=== PATIENT | male | born 1995 | race African-American/Black ===

== ENCOUNTER 2025-01-18 23:06 | Emergency (ER) | payer BC, SELFPAY ==
[2025-01-18 23:07] VITALS: BMI 21.2
[2025-01-19 00:58] VITALS: BP 118/70; PULSE 155; RESP 19; TEMP 38.3; O2SAT 99
--- NOTE | 2025-01-19 00:58 | XR_ITS ---
EXAMINATION: XR chest 1V ORDERING PROVIDER: Saud Gutierres PA-C HISTORY: right rib tenderness, r/o pthx TECHNIQUE: PA and Lateral radiographs of the chest. COMPARISON: 07/07/2009, chest radiographs FINDINGS: Lungs: Clear. Pleura: No pneumothorax or pleural effusion. Cardiomediastinal Silhouette: Normal. Soft Tissues/Bones: Normal. IMPRESSION: No acute pulmonary findings. Teleradiology report provided at 4:40 AM 01/19/2025.
--- NOTE | 2025-01-19 00:59 | PD.EDRME ---
Rapid Medical Screening Exam RME Arrival date/time: 01/18/25 23:06 29 yo m present to Ed for c/o of right rib/chest pain s/p injury while playing basketball I have greeted and performed a focused initial assessment of this patient. A comprehensive ED assessment and evaluation of the patient, analysis of all test results, and completion of the medical decision making process will be conducted by additional ED providers. Chief Complaint: Fall Time Seen by Provider: 01/19/25 00:48
[2025-01-19 01:22] VITALS: PULSE 75
[2025-01-19] MEDS: ACETAMINOPHEN 325 MG TABLET 650 MG PO (01:25)
--- NOTE | 2025-01-19 01:34 | XR_ITS ---
Examination: Bilateral chest single view Technique: Lateral chest single view Exam date and time: 2024 hrs. Comparison January 19, 2025 011 hrs. Indications: Right rib tenderness Findings: Mild hyperexpansion No pneumonia or pulmonary edema Impression: No pneumonia or pulmonary edema
[2025-01-19 02:04] LABS: Strep A Rapid Positive (Negative)
[2025-01-19 03:32] VITALS: TEMP 36.8
--- NOTE | 2025-01-19 03:53 | PD.EDFALL ---
ED Fall Injury RME/HPI General Chief Complaint: Fall Stated Complaint: FALL, RIGHT RIB PAIN, RIGHT SHOULDER PAIN, MONTES Time Seen by Provider: 01/19/25 00:48 Arrival date/time: 01/18/25 23:06 29 year old male present to emergency room with c/o of rib injury today while playing basketball. pt was exposed to strep recently and complaints of fever and headache. LOCATION: rib SEVERITY: Symptoms are described as being severe with limitations on activities of daily living CONTEXT: The patient is unable to identify any inciting events. DURATION/TIMING: The symptoms started approximately 1 day ASSOCIATED SYMPTOMS: The patient is unable to identify any other associated symptoms. MODIFYING FACTORS: The patient is unable to identify any alleviating or aggravating symptoms. PERTINENT ROS:no shortness of breath no nausea,vomiting, diarrhea, no dizziness no rash no loc/syncope episode no abd/back pain REVIEW OF SYSTEMS: See History of Present Illness - with the exception of those mentioned in the history of present illness, all other systems reviewed and reported as negative GENERAL: In general the patient is awake, interactive, in an emergency department gurney. HEAD/EYES/EARS/NOSE/THROAT: normo-cephalic, atraumatic, mucus membranes are moist, anicteric, palpebral conjunctiva is pink, trachea is midline. CARDIOVASCULAR: regular rate and regular rhythm, no murmurs, heart sounds are not distant, strong pulses in all four extremities that are equal and symmetric bilateral upper and lower extremities, normal capillary refill. CHEST/PULMONARY: + right rib tenderness. no frail chest, normal chest rise and fall, good air movement, clear to auscultation bilaterally, normal inspiratory to expiratory ratios without evidence of respiratory distress. NECK: No midline/Paraspinal tenderness, no step off ROM/Strenght intact No Kernig and bruzinski sign. No trauma ABDOMEN: soft, not tender, no masses appreciated BACK: normal range of motion without pain. NEUROLOGICAL: cranio-facial features are symmetric, moves all four extremities equally without obvious limitations or weakness. EXTREMITY: no tenderness to palpation over the long bones or large joints of the bilateral upper and lower extremities, no joint swelling, no joint erythema, no signs of trauma, no unilateral leg swelling and no peripheral edema. SKIN: warm, dry, well-perfused, no jaundice, no rash, no telangiectasias or petechia. PSYCH: calm, cooperative, no evidence of psychosis or agitation RME / HPI RME / HPI Narrative: 01/18/25 23:06 29 yo m present to Ed for c/o of right rib/chest pain s/p injury while playing basketball I have greeted and performed a focused initial assessment of this patient. A comprehensive ED assessment and evaluation of the patient, analysis of all test results, and completion of the medical decision making process will be conducted by additional ED providers. Related Data Previous Rx's ?Medication ?Instructions ?Recorded penicillin V potassium 500 mg 500 mg PO QID 10 days ##0 09/11/12 tablet amoxicillin 500 mg tablet 500 mg PO BID #20 tabs 01/19/25 Allergies Allergy/AdvReac Type Severity Reaction Status Date / Time No Known Allergies Allergy Verified 01/18/25 23:07 Course Course Course Narrative: Patient presenting with sore throat consistent with bacterial pharyngitis.? Rapid strep was obtained and was positive.? The patient did not have trismus, hot potato voice, uvula deviation, unilateral tonsillar swelling, toxic appearance, drooling or pain with movement of the trachea to suggest peritonsillar abscess or epiglottitis.? No evidence of other bacterial infections including peritonsillar abscess, retropharyngeal abscess, epiglottitis.? Prescription for amoxicillin (first dose given before discharge)? provided. Patient advised to continue ibuprofen and Tylenol at home. Patient is to followup with primary physician if has continued symptoms.? + strep, negative flu xray: no acute finding wet read? Plan:? Discharge from ED Prescribed amoxacillin 500 mg bid x10d and instructed Pt to complete entire Ab course.? Patient will be contagious for first?hr while on Ab regimen. Advised Pt on supportive therapies, including using a cool-mist vaporizer/humidifer/steam from hot showers, limit talking, OTC throat lozenges and mouthwashes qd, gargling w/ warm saltwater, advancement of fluids as tolerated, nasal saline sprays, rest, OTC acetaminophen or ibuprofen as directed prn for pain control, frequent handwashing, and boiling/disposing of contaminated toothbrushes.? Instructed Pt to f/up w/ PCP or ETC should Sx worsen or not improve.? Quality Measures none Orders Category Date Time Status Bedside Influenza A&B Antigen Test NOW Care 01/19/25 01:02 Completed EKG (ED Only) Stat Exams 01/19/25 01:16 Stop Req XR chest 1V Stat Exams 01/19/25 00:58 Taken XR chest 1V Stat Exams 01/19/25 01:34 Taken Strep A Rapid Stat Lab 01/19/25 01:36 Completed Acetaminophen Tab [Tylenol Tab] Med 01/19/25 01:02 Discontinued 650 mg PO X1 ONE Amoxicillin Cap [Amoxil Cap] Med 01/19/25 03:51 Discontinued 500 mg PO X1 ONE Vital Signs Vital signs: Vital Signs Temperature 100.9 F H 01/19/25 00:58 Pulse Rate 155 H 01/19/25 00:58 Respiratory Rate 19 01/19/25 00:58 Blood Pressure 118/70 01/19/25 00:58 Pulse Oximetry (%) 99 01/19/25 00:58 Oxygen Delivery Method Room Air 01/19/25 00:58 Fall Patient data External records reviewed:: [facility] previous records Clinical information provided by:: patient Social determinants that could affect healthcare access:: none Patient has the following chronic illnesses:: n/a How is presenting disease/condition affected by chronic disease/condition?: no chronic disease Evaluation data The following diagnostics were reviewed and interpreted by me:: lab results and radiology exam(s) Lab and/or radiology exams considered but not ordered:: n/a Interpretation Summary: xray: nad, wet read, radiologist will read in the morning. vital sign wnl limit, no sob or difficulty ambulation Medications / Prescriptions Medications or Prescriptions considered but not ordered:: n/a Medication administrations:: Medication Administration History Discontinued Medications Acetaminophen (Acetaminophen 325 Mg Tablet) 650 mg PO X1 ONE Stop: 01/19/25 01:03 Last Admin: 01/19/25 01:25 Dose: 650 mg Documented By: MAITE Amoxicillin (Amoxicillin 250 Mg Capsule) 500 mg PO X1 ONE Stop: 01/19/25 03:52 as stated above Consultations Consultation(s) initiated? (list below): No Diagnosis Fall Differential Diagnosis: other (rib fx/contusion, strep vs uri, vs flu vs muscle strain ) Most likely diagnosis given after review of the tests above:: strep, rib contusion Admission Indicated Admission indicated?: not indicated Admission Request Was there a request for admission?: No Disposition Plan Disposition Plan: Discharge Discharge Attestation Discharge Attestation: The patient and all family members were given an opportunity to ask questions and understood the discharge instructions. Discharge instructions specifically effects, indications for sooner follow up or return to the emergency department, and the expected course of current diagnosis. Patient condition: Stable Discharge Plan Plan Patient Disposition: HOME (Self Care) Health Concerns: Follow with PMD as directed Take tylenol or motrin as need Return to ED if sx worsen Prescriptions/Referrals Prescriptions/Med Rec: New amoxicillin 500 mg tablet 500 mg PO BID Qty: 20 0RF No Action penicillin V potassium 500 MG tablet 500 mg PO QID 10 Days Qty: 0 0RF Referrals: No Primary/Family,Physician [Primary Care Provider] - In 1 week Problem List Clinical Impression: Contusion of rib, Strep pharyngitis Patient/Caregiver Discharge Instructions Education Materials: ED Pharyngitis, Strep (Confirmed), ED Contusion, Rib Print Language: Ivorian Stand Alone Forms: Monica Award Info., Patient Portal Info Letter
[2025-01-19] MEDS: AMOXICILLIN 250 MG CAPSULE 500 MG PO (03:57)
[2025-01-19 03:58] VITALS: RESP 18
== END 2025-01-19 03:58 | disposition home or self-care (01) ==
PROVIDERS: Physician Assistant; Emergency Provider Emergency Medicine
DX: S20.219A Contusion of unspecified front wall of thorax, initial encounter (principal); J02.0 Streptococcal pharyngitis; X58.XXXA Exposure to other specified factors, initial encounter; Y93.67 Activity, basketball
CPT/HCPCS: 71045; 87400; 87651; 99283; A9270

== ENCOUNTER → 2025-01-20 | Outpatient (CLI) | payer BC, SELFPAY ==
--- NOTE | 2025-01-20 16:09 | XR_ITS ---
Examination: Thoracic spine 3 views Technique one AP lateral upper dorsal spine 3 views Exam date and time: January 20, 2025 1655 hrs. Indications: Sports injury to the back 3 days ago, back pain. Findings: Satisfactory thoracic vertebral bodies No thoracic fracture No thoracic disc narrowing Impression: No thoracic fracture
--- NOTE | 2025-01-20 16:09 | XR_ITS ---
Examination: Lumbar spine, 5 views Technique: Lumbar spine AP, lateral, coned lateral lower lumbar spine, bilateral obliques 5 views Exam date and time: January 20, 2025 at 1816 hrs. Indications: Injury to lower back 3 days ago with lower back pain. Findings: Satisfactory alignment lumbar vertebral bodies. No fracture. No spondylolisthesis. Impression: No lumbar fracture
--- NOTE | 2025-01-20 16:09 | XR_ITS ---
Examination: Ribs, right, with PA chest, 5 views Technique: Chest PA, RIBS AP, RPO, LPO, AP coned lower ribs 5 views Exam date and time: January 20, 2025 1618 hrs. Indications: Injury to right chest 3 days ago with right rib pain Findings: Normal heart size. No pneumothorax No acute rib fractures Impression: No pneumothorax, contusion or hemothorax No acute rib fractures
== END | disposition home or self-care (01) ==
PROVIDERS: PCP Nurse Practitioner Family; Referring Provider Nurse Practitioner Family; Visit Provider Nurse Practitioner Family
DX: S39.92XA Unspecified injury of lower back, initial encounter (principal); S29.9XXA Unspecified injury of thorax, initial encounter; X58.XXXA Exposure to other specified factors, initial encounter
CPT/HCPCS: 71101; 72072; 72110

== ENCOUNTER → 2025-06-16 | Outpatient (CLI) | payer BC, SELFPAY ==
--- NOTE | 2025-06-16 07:00 | XR_ITS ---
MRI shoulder, right, without contrast. Date and time: June 16, 20252006 hours INDICATIONS: Right shoulder pain shoulder instability joint pops out of socket the last 5 years Technique: Multiple axial, sagittal and coronal sections of the shoulder have been obtained. Siemens high-resolution 1.5 [employer] MRI scanner is utilized. Axial fat-suppressed sections, TR 2350, TE 18 T2-weighted coronal fat-saturated images, TR 3500, TE 7100 T1-weighted coronal images, TR 500, TE 15 T2-weighted sagittal fat-saturated images, TR 3500, TE 57 T1-weighted sagittal sections, TR 504, TE 13. Findings: Supraspinatus tendon insertion is intact. Infraspinatus tendon insertion is intact. Subscapularis insertion is intact. Subscapularis bursa is not seen. Long head of the biceps is in the bicipital groove. No definite tear of the biceps superior labral anchor is seen. Retraction of the musculotendinous junction of the rotator cuff is not seen . Tendinosis pattern is mild. Distance between the acromium and humeral head is 6.8 mm Atrophy of the supraspinatus muscle is not seen. Atrophy of the infraspinatus muscle is not seen. Sagittal sections demonstrate a horizontal acromion. Acromioclavicular joint demonstrates no arthritic change. Osacromiale is not identified. Labral margins intact. Bony glenoid fossa on the sagittal sections does not demonstrate osseous defect. Occult fracture or area of avascular necrosis is not seen. Acromioclavicular joint separation is not visible. Defect in the posterolateral margin of the humeral head is not seen Impression: Rotator cuff and labral margins intact
== END | disposition home or self-care (01) ==
LOC: SMRI 06:53
PROVIDERS: Referring Provider Nurse Practitioner Family; Visit Provider Nurse Practitioner Family
DX: S49.91XA Unspecified injury of right shoulder and upper arm, initial encounter (principal); X58.XXXA Exposure to other specified factors, initial encounter; Z87.39 Personal history of other diseases of the musculoskeletal system and connective tissue
CPT/HCPCS: 73221